=== PATIENT | female | born 1990 | race Caucasian/White ===

== ENCOUNTER 2017-04-03 23:52 | Emergency (ER) | payer OTHER ==
[2017-04-03 23:54] VITALS: BP 130/84; PULSE 129; RESP 16; TEMP 99.3; O2SAT 97
[2017-04-04] MEDS ORDERED: IBUPROFEN 600 MG TAB PO ONE (00:15)
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
[2017-04-04] MEDS ORDERED: IBUP-232 PO (00:47)
== END 2017-04-04 01:42 | disposition home or self-care (01) ==
LOC: NEPD 23:52
DX: S62.614A Displaced fracture of proximal phalanx of right ring finger, initial encounter for closed fracture (principal); R00.0 Tachycardia, unspecified; W51.XXXA Accidental striking against or bumped into by another person, initial encounter
CPT/HCPCS: 29125; 73130